=== PATIENT | female | born 1980 | race Caucasian/White ===

== ENCOUNTER 2017-05-20 00:56 | Emergency (ER) | payer OTHER ==
[~2017-05-20] VITALS: Ht 154.9 cm; Wt 83.9 kg
== END 2017-05-20 04:55 | disposition home or self-care (01) ==
LOC: ER 00:56
DX: R10.31 Right lower quadrant pain (principal)

== ENCOUNTER 2019-08-25 21:27 | Emergency (ER) | payer OTHER ==
[~2019-08-25] VITALS: Ht 162.6 cm; Wt 79.4 kg
[2019-08-26] MEDS ORDERED: KETO10TA2 PO (00:46)
== END 2019-08-26 01:23 | disposition home or self-care (01) ==
LOC: ER 21:27
DX: N83.291 Other ovarian cyst, right side (principal)

== ENCOUNTER 2019-12-19 07:45 | Emergency (ER) | payer OTHER ==
[~2019-12-19] VITALS: Ht 154.9 cm; Wt 77.1 kg
[~2019-12-19 07:45] MED LIST: KETO10TA2 PO
[2019-12-19] MEDS ORDERED: CIPRO500 MG PO (10:27)
[2019-12-19] MEDS ORDERED: KETO10TA2 PO (10:27)
== END 2019-12-19 10:43 | disposition home or self-care (01) ==
LOC: ER 07:45
DX: N39.0 Urinary tract infection, site not specified (principal); Z20.828 Contact with and (suspected) exposure to other viral communicable diseases

== ENCOUNTER 2021-04-08 04:38 | Emergency (ER) | payer OTHER ==
[~2021-04-08] VITALS: Ht 154.9 cm; Wt 85.7 kg
[~2021-04-08 04:38] MED LIST changes: +CIPRO500 MG PO
[2021-04-08] MEDS ORDERED: DOLOGESIC-DF 51 EACH PO (07:14)
== END 2021-04-08 07:40 ==
LOC: ER 04:38
DX: U07.1 COVID-19 (principal)

== ENCOUNTER 2022-10-13 13:29 | Emergency (ER) | payer OTHER ==
[~2022-10-13] VITALS: Ht 154.9 cm; Wt 80.3 kg
[~2022-10-13 13:29] MED LIST changes: +DOLOGESIC-DF 51 EACH PO
== END 2022-10-13 17:39 | disposition home or self-care (01) ==
LOC: ER 13:29
DX: R10.2 Pelvic and perineal pain (principal); B37.31 Acute candidiasis of vulva and vagina

== ENCOUNTER 2024-06-07 17:19 | Emergency (ER) | payer OTHER ==
[~2024-06-07] VITALS: Ht 154.9 cm; Wt 81.6 kg
[2024-06-07] MEDS ORDERED: CEFTRIAXONE SODIUM 1,000 MG VIAL IM STA (18:49)
[2024-06-07] MEDS ORDERED: GUAIFENESIN/DEXTROMETHORPHAN 100MG/10ML BLIST.PACK PO STA (18:50)
[2024-06-07] MEDS ORDERED: GUAIFENESIN/DEXTROMETHORPHAN 100MG/10ML BLIST.PACK PO ONE (20:01)
[2024-06-07] MEDS ORDERED: CEFTRIAXONE SODIUM 1,000 MG VIAL ONE (20:01)
== END 2024-06-07 20:21 | disposition home or self-care (01) ==
LOC: ER 17:21
DX: J06.9 Acute upper respiratory infection, unspecified (principal)
CPT/HCPCS: 96372; 99282; J0696